=== PATIENT | male | born 1960 | race Caucasian/White ===

== ENCOUNTER 2018-07-30 17:38 | Emergency (ER) | payer MEDICAID, OTHER ==
[~2018-07-30] VITALS: Ht 160 cm; Wt 61.7 kg
[2018-07-30] MEDS ORDERED: AMLO10TA6 PO (18:07)
[2018-07-30] MEDS ORDERED: ENAL20TA PO (18:08)
[2018-07-30] MEDS ORDERED: DIAZEPAM 5 MG TABLET ONE (18:17)
[2018-07-30] MEDS ORDERED: KETOROLAC 30 MG/1 ML ONE (18:17)
[2018-07-30] MEDS ORDERED: KETOROLAC 30 MG/1 ML IM ONE (18:30)
[2018-07-30] MEDS ORDERED: DIAZEPAM 5 MG TABLET PO ONE (18:30)
[2018-07-30 18:32] LABS: BASOPHILS # (AUTO) 0.06 x10^3/uL (0-0.1); BASOPHILS % (AUTO) 1 % (0-1); EOSINOPHILS # (AUTO) 0.08 x10^3/uL (0-0.4); EOSINOPHILS % (AUTO) 1 % (1-7); LYMPHOCYTES # (AUTO) 2.25 x10^3/uL (1-3.4); LYMPHOCYTES % (AUTO) 30 % (22-44); MD NO; MEAN CORPUSCULAR HEMOGLOBIN 30.6 pg (27.5-34.5); MEAN CORPUSCULAR HGB CONC 33.6 g/dL (33.2-36.2); MEAN CORPUSCULAR VOLUME 90.9 fL (81-97); MEAN PLATELET VOLUME 8.3 fL (7.4-10.4); MONOCYTES # (AUTO) 0.33 x10^3/uL (0.2-0.8); MONOCYTES % (AUTO) 4 % (2-9); NEUTROPHILS # (AUTO) 4.82 x10^3/uL (1.8-6.8); NEUTROPHILS % (AUTO) 64 % (42-75); PLATELET COUNT 273 x10^3/uL (130-400); RED BLOOD COUNT 4.91 x10^6/uL (4.38-5.82); RED CELL DISTRIBUTION WIDTH 13.1 % (9.4-14.8)
[2018-07-30 18:41] LABS: ALBUMIN 3.8 g/dL (3.4-5.0); ANION GAP 7 mmol/L (5-15); CALCIUM 8.6 mg/dL (8.5-10.1); CHLORIDE 106 mmol/L (98-107)
[2018-07-30 18:44] LABS: TROPONIN I < 0.015 ng/mL (0.000-0.045)
[2018-07-30] MEDS ORDERED: HYDROcodone/APAP 5/325 TABLET PO ONE (19:30)
[2018-07-30 19:38] VITALS: BP 156/89
== END 2018-07-30 19:54 | disposition home or self-care (01) ==
LOC: ED 19:48
DX: M62.830 Muscle spasm of back (principal); R07.89 Other chest pain; M25.512 Pain in left shoulder; I10 Essential (primary) hypertension; F17.200 Nicotine dependence, unspecified, uncomplicated
CPT/HCPCS: 36415; 71045; 73030; 80048; 82040; 84484; 85025; 93005; 96372; 99285; J1885